=== PATIENT | male | born 1945 | race Caucasian/White ===

== ENCOUNTER 2016-05-10 17:49 | Emergency (ER) | payer MEDICARE, OTHER ==
[2016-05-10] MEDS ORDERED: DUONEB INH ONE (18:57)
[2016-05-10] MEDS ORDERED: SODIUM CHLORIDE 0.9% 1,000 ML ONE (19:07)
[2016-05-10] MEDS ORDERED: METHYLPRED SOD SUCC 125 MG/2 ML VIAL ONE (19:07)
== END 2016-05-10 23:50 | disposition home or self-care (01) ==
LOC: ER 17:49
DX: J18.9 Pneumonia, unspecified organism (principal); J44.9 Chronic obstructive pulmonary disease, unspecified; E03.9 Hypothyroidism, unspecified; I48.91 Unspecified atrial fibrillation
CPT/HCPCS: 36415; 36600; 71010; 80053; 82550; 82803; 83735; 84484; 85025; 85610; 85730; 93005; 94640; 96361; 96374; 99285; J2930